=== PATIENT | male | born 1950 | race Caucasian/White ===

== ENCOUNTER 2018-08-10 10:44 | Observation (INO) | payer MEDICARE, OTHER ==
--- OUTSIDE RECORDS SUMMARY | 2018-08-10 10:52 | XMS REPORT | Continuity of Care Document ---
:1950 External Reference #:[id number] Author Name Nora Price Care Team Providers Name Role Phone Jose Donohue MD Care Team Information [employer] Unavailable Jose Donohue MD Primary Care Physician Unavailable Payers Type Date Identification Numbers Payment Provider Subscriber Effective: 2018 Policy Number: [id number] [employer] [place] Curly Cruz PayID: [id number] [address] [place] [address] Policy Number: [id number] [facility] Curly Cruz PayID: [id number] [address] [address] [address] Expires: 2018 Policy Number: [id number] [employer] [place] Curly Cruz PayID: [id number] [address] [place] [address] Advance Directives Description No Information Available Problems Date Description Provider Status Onset: 12/26/2017 Uncomplicated moderate persistent Aki Asher MD Active asthma Onset: 12/26/2017 Allergic rhinitis Aki Asher MD Active Onset: 12/26/2017 Allergic rhinitis due to pollen Aki Asher MD Active Family History Date Family Member(s) Problem(s) Comments General Unknown Social History Type Date Description Comments Sex Unknown Smoke-Free Home is smoke-free Pets None Tobacco Use Start: Unknown End: Unknown Patient is a former smoker Smoking Status Reviewed: 07/24/18 Patient is a former smoker Allergies, Adverse Reactions, Alerts Description No Known Drug Allergies Medications Medication Date Status Form Strength Qnty SIG Indications Ordering Provider Symbicort 01/23/ Active Aerosol 160-4.5mcg 1unit 2 puff J30.89 Christopher 2018 /Act s twice a Kiersten Asher MD day Mometasone 12/26/ Active Suspension 50mcg/Act 17gm [facility]ill [facility]1 [facility] 2017 2 sprays Kiersten Asher MD into each nostril once daily Xyzal Allergy 12/26/ Active Tablets 5mg 30tab take 1 J30.1 [place] 24HR 2018 s tablet Kiersten Asher MD (5 mg) by oral route once daily as needed Proair HFA 12/26/ Active Aerosol 108(90Base 8.500 2 puffs J30.1 [place] 2017 ) mcg/Act gm every 4 Kiersten Asher MD as needed Tradjenta / Active Tablets 5mg Unknown 0000 Fenofibrate / Active Tablets 160mg 1/2 by Unknown 0000 mouth every day Atorvastatin / Active Tablets 40mg 1 by Unknown Calcium 0000 mouth every day Tamsulosin HCL / Active Capsules 0.4mg take 1 Unknown 0000 cap by mouth daily. Metformin HCL / Active Tablets 500mg take 1 Unknown 0000 tablet by mouth twice a day (takes w/ janumet 50/500mg ) Lisinopril / Active Tablets 10mg Unknown 0000 Terbinafine / Active Tablets 250mg 1 by Unknown HCL 0000 mouth every day Breo Ellipta 12/26/ Hx Aerosol 200-25mcg/ 1unit inhale [place] 2017 - Inh s one puff Kiersten Asher MD 01/23/ once a 2018 day Doxycycline / Hx Capsules 100mg one Unknown Hyclate 0000 - tablet 01/09/ by mouth 2017 once a day Immunizations Description No Information Available Vital Signs Date Vital Result Comment 07/24/2018 3:14pm BP Systolic 132 mmHg BP Diastolic 72 mmHg Height 72 inches 6'0" Weight 190.00 lb BMI (Body Mass Index) 25.8 kg/m2 Heart Rate 82 /min Respiratory Rate 16 /min Body Temperature 98.0 F O2 % BldC Oximetry 98 % 01/23/2018 8:54am BP Systolic 118 mmHg BP Diastolic 68 mmHg Height 72 inches 6'0" Weight 191.00 lb BMI (Body Mass Index) 25.9 kg/m2 Heart Rate 66 /min Respiratory Rate 16 /min Body Temperature 96.6 F O2 % BldC Oximetry 95 % 12/26/2017 10:32am BP Systolic 120 mmHg 94 BP Diastolic 88 mmHg 94 Height 72 inches 6'0" Weight 191.00 lb BMI (Body Mass Index) 25.9 kg/m2 Heart Rate 94 /min Respiratory Rate 18 /min Body Temperature 97.2 F O2 % BldC Oximetry 98 % Results Description No Information Available Procedures Date Code Description Status 01/23/2018 56688 Nitric Oxide Gas Determination Completed 01/23/2018 27548 Nitric Oxide Gas Determination Completed 01/23/2018 68402 Bronchodilation Responsiveness Spirometry Pre/Post Completed Bronchodil Adm 01/23/2018 87502 Bronchodilation Responsiveness Spirometry Pre/Post Completed Bronchodil Adm 12/26/2017 94488 Nitric Oxide Gas Determination Completed 12/26/2017 76473 Allergy Tests Percutaneous W/ Allergenic Extracts Completed 12/26/2017 35996 Bronchodilation Responsiveness Spirometry Pre/Post Completed Bronchodil Adm Encounters Type Date Location Provider Dx Diagnosis Office Visit 01/23/2018 8:30a GUERO Magallanes J30.1 Allergic rhinitis due to pollen J30.89 Other allergic rhinitis J45.40 Moderate persistent asthma, uncomplicated Office Visit 12/26/2017 10:30a Jenae Asher J30.1 Allergic rhinitis MD due to pollen J30.89 Other allergic rhinitis J45.40 Moderate persistent asthma, uncomplicated Plan of Treatment 01/23/2018 - GUERO VasquezJ30.1 Allergic rhinitis due to wcepbrS57.89 Other allergic rhinitisNew Medication:Symbicort 160-4.5 mcg/Act - 2 puff twice a dayJ45.40 Moderate persistent asthma, uncomplicatedComments:Patient's PFT shows FEV1 at 70%, post FEV1 at 71%. FEF 2575 at 51%, post FEF 2575 at 57%. Patient' s exhaled nitric oxide is elevated at 42 ppb. On exhaled nitric oxide was 79 ppb. Patient to continue Breo for prophylaxis of his lungs and pro-air for breakthrough chest symptoms. Insurancedid not cover the cost of Breo so we have supplied patient with Breo samples. We will try to prescribe a medication (Symbicort) that his insurance will cover. Patient to use Flonase for prophylaxis of his nose and Xyzal for breakthrough nasal symptoms.Follow up:6 months, PFT and NIOX prior
--- OUTSIDE RECORDS SUMMARY | 2018-08-10 10:52 | XMS REPORT | Continuity of Care Document ---
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 Jose Donohue MD Primary Care Physician Unavailable Payers Type Date Identification Numbers Payment Provider Subscriber Effective: 2018 Policy Number: [id number] [employer] [place] Cur[place] Cruz PayID: [id number] [address] [place] [address] Policy Number: [id number] [facility] Curly Cruz PayID: [id number] [address] [address] [place] [address] Expires: 2018 Policy Number: [id number] [employer] [place] Curly Cruz PayID: [id number] [address] [place] [address] Advance Directives Description No Information Available Problems Date Description Provider Status Onset: 07/24/2018 Chronic obstructive lung Vangie Martins, ARTURO-C Active disease Onset: 12/26/2017 Uncomplicated moderate Aki Asher MD Active persistent asthma Onset: 12/26/2017 Allergic rhinitis Aki Asher [...] Form Strength Qnty SIG Indications Ordering Provider Breo Ellipta 07/24/ Active Aerosol 200-25mcg/ 28uni Inhale J45.40 [place] 2019 Inh ts one puff Kiersten Asher MD once a day. Rinse mouth after use. Proair HFA 12/26/ Active Aerosol 108(90Base 8.500 2 puffs J30.1 [place] 2017 ) mcg/Act gm every 4 Kiersten [...] by Unknown HCL 0000 mouth every day Symbicort 01/23/ Hx Aerosol 160-4.5mcg 1unit 2 puff J30.89 [facility] - /Act s twice a Kiersten Asher MD day 2019 Mometasone 12/26/ Hx Suspension 50mcg/Act 17gm instill J30.1 Christopher Furoate 2018 - 2 sprays Kiersten Asher MD into 2019 each nostril once daily Xyzal Allergy 12/26/ Hx Tablets 5mg 30tab take 1 [facility].1 [facility] - s tablet Kiersten Asher MD 07/24/ (5 mg) 2019 by oral route once daily as needed Breo Ellipta 12/26/ Hx Aerosol 200-25mcg/ 1unit inhale [place] 2018 - Inh s one puff Kiersten Asher MD 01/23/ once a 2018 day Doxycycline / Hx Capsules 100mg one Unknown Hyclate 0000 - tablet 01/09/ by mouth 2018 once a day Immunizations Description No Information [...] Information Available Procedures Date Code Description Status 07/24/2018 04370 Nitric Oxide Gas Determination Completed 07/24/2018 04700 Bronchodilation Responsiveness Spirometry Pre/Post Completed Bronchodil Adm 01/23/2018 13888 Nitric Oxide Gas Determination Completed 01/23/2018 61812 Nitric Oxide Gas Determination Completed 01/23/2018 91376 Bronchodilation Responsiveness Spirometry Pre/Post Completed Bronchodil Adm 01/23/2018 41602 Bronchodilation Responsiveness Spirometry Pre/Post Completed Bronchodil Adm 12/26/2017 80799 Nitric Oxide Gas Determination Completed 12/26/2017 12929 Allergy Tests Percutaneous W/ Allergenic Extracts Completed 12/26/2017 58625 Bronchodilation Responsiveness Spirometry Pre/Post Completed Bronchodil Adm Encounters Type Date Location Provider Dx Diagnosis Office Visit 07/24/2018 Jenae Salas J45.40 Moderate persistent 3:00p Fenstermacher, asthma, uncomplicated RPA-C J44.9 Chronic obstructive pulmonary disease, unspecified J30.1 Allergic rhinitis due to pollen Office Visit 01/23/2018 8:30a GUERO Magallanes J30.1 Allergic rhinitis due to pollen J30.89 Other allergic rhinitis J45.40 Moderate persistent asthma, uncomplicated Office Visit 12/26/2017 10:30a Jenae Asher J30.1 Allergic rhinitis MD due to pollen J30.89 Other allergic rhinitis J45.40 Moderate persistent asthma, uncomplicated Plan of Treatment Future Appointment(s):10/23/2018 10:00 am - HASEEB Gregory at [place]
--- NOTE | 2018-08-10 11:05 | ED ---
Syncope/Near Syncope - HPI Summary HPI Summary: Patient is a 68 y/o M presenting to ED via ambulance with complaints of syncopal episode today. He was at [employer] today when he states he began to feel "woozy" and slightly dizzy. Patient denies diaphoresis and tremors at the time. Afterwards, patient went down, was caught by [employer]'s car sales representative. No injury is reported. , who is in the room, reports that patient was "totally out" for a few minutes. notes that he was slightly confused upon awaking, but this resolved quickly. She also reports that patient had a similar episode three weeks ago while patient was at daughter's swim meet, nothing that patient was similarly "totally out" for a few minutes. At the time, the patient thought the syncopal episode was due to the heat at the swim meet. PMHx of HTN and diabetes. EMS reports that patient appeared somewhat pale. BP was reported to be 102 systolic, BG of 165. EMS 12 lead EKG was reported to be unremarkable. Patient is on metformin and trijenta. Chest pain, SOB, abdominal pain, N/V/D, constipation are all denied. No recent travel, no recent long rides in cars. Patient notes that he had a sweet roll for breakfast, which is less than his typical breakfast. On triage, pain is denied, nothing is noted to aggravate/ alleviate Sx. Home medications and allergies are reviewed. - History Of Current Complaint Chief Complaint: EDSyncope Time Seen by Provider: 08/10/18 10:53 Hx Obtained From: Patient, Family/Rn Gastroenterology - , EMS Onset/Duration: Lasting Minutes - syncopal episode, Resolved Timing: Frequency Of Episodes - this is second episode Context: Witnessed, Loss Of Consciousness Activity At Onset: Other - at [employer] standing and talking to car sales representative Associated Head Trauma: No Aggravating Factor(s): Nothing Alleviating Factor(s): Nothing Associated Signs And Symptoms: Dizzy, Other - no tremors, diaphoresis, Chest pain, SOB, abdominal pain, N/V/D, injury, recent long travel or car rides - Allergies/Home Medications Allergies/Adverse Reactions: Allergies Allergy/AdvReac Type Severity Reaction Status Date / Time iodixanol [From Visipaque] Allergy Hives Verified 08/10/18 11:09 PMH/Surg Hx/FS Hx/Imm Hx Endocrine/Hematology History: Reports: Hx Diabetes - type 2 Cardiovascular History: Reports: Hx Hypertension Denies: Hx Pacemaker/ICD History: Reports: Hx Renal Disease - abnormal gfr Denies: Hx Dialysis Sensory History: Denies: Hx Hearing Aid Psychiatric History: Denies: Hx Panic Disorder - Surgical History Surgery Procedure, Year, and Place: hernia repair,ORAL SURGERY Infectious Disease History: No Infectious Disease History: Denies: Traveled Outside the [place] in Last 30 Days - Family History Known Family History: Positive: Diabetes - Social History Alcohol Use: None Substance Use Type: Reports: None Smoking Status (MU): Never Smoked Tobacco Review of Systems Constitutional: Other - NEGATIVE - TREMORS, INJURY Negative: Skin Diaphoresis Negative: Chest Pain Negative: Shortness Of Breath Gastrointestinal: Other - NEGATIVE - CONSTIPATION Negative: Abdominal Pain, Vomiting, Diarrhea, Nausea Neurological: Other - POSITIVE - DIZZINESS, "WOOZY" BEFORE EPISODE Positive: Syncope - WITH LOC All Other Systems Reviewed And Are Negative: Yes Physical Exam - Summary Physical Exam Summary: VITAL SIGNS: Reviewed. GENERAL: Patient is a well-developed and nourished male who is lying comfortable in the stretcher. Patient is not in any acute respiratory distress. HEAD AND FACE: No signs of trauma. No ecchymosis, hematomas or skull depressions. No sinus tenderness. EYES: PERRLA, EOMI x 2, No injected conjunctiva, no nystagmus. No photophobia. EARS: Hearing grossly intact. Ear canals and tympanic membranes are within normal limits. MOUTH: Oropharynx within normal limits. NECK: Supple, trachea is midline, no adenopathy, no JVD, no carotid bruit, no c- spine tenderness, neck with full ROM. No meningeal signs, no Kernig's or brudzinskis signs. CHEST: Symmetric, no tenderness at palpation LUNGS: Clear to auscultation bilaterally. No wheezing or crackles. CVS: Regular rate and rhythm, S1 and S2 present, no murmurs or gallops appreciated. ABDOMEN: Soft, non-tender. No signs of distention. No rebound no guarding, and no masses palpated. Bowel sounds are normal. EXTREMITIES: FROM in all major joints, no edema, no cyanosis or clubbing. NEURO: Alert and oriented x 3. No acute neurological deficits. Speech is normal and follows commands. SKIN: Dry and warm GCS: 15 Triage Information Reviewed: Yes Vital Signs On Initial Exam: Initial Vitals Temp Pulse Resp BP Pulse Ox 98.5 F 74 23 108/71 95 08/10/18 10:52 08/10/18 10:52 08/10/18 10:52 08/10/18 10:52 08/10/18 10:52 Vital Signs Reviewed: Yes Diagnostics - Vital Signs Vital Signs Temp Pulse Resp BP Pulse Ox 08/10/18 10:52 98.5 F 74 23 108/71 95 - Laboratory Result Diagrams: 08/11/18 04:57 08/11/18 04:57 Lab Statement: Any lab studies that have been ordered have been reviewed, and results considered in the medical decision making process. - Radiology CXR Radiology Interpretation Completed By: Radiologist Summary of Radiographic Findings: IMPRESSION: FINDINGS SUGGESTIVE OF COPD, NO EVIDENCE FOR ACUTE FINDING. THIS REPORT WAS REVIEWED BY ED PHYSICIAN. - CT brain ct CT Interpretation Completed By: Radiologist Summary of CT Findings: IMPRESSION: DISPROPORTIONATE VENTRICULOMEGALY INVOLVING THE THIRD AND LATERAL VENTRICLES. 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 EXAM. THIS REPORT WAS REVIEWED BY ED PHYSICIAN. - EKG 1111 Cardiac Rate: NL - rate of 85 BPM EKG Rhythm: Sinus Rhythm Summary of EKG Findings: EKG showed sinus rhythm with rate of 85 BPM, no ST elevations. Course/Dx Assessment/Plan: Patient is a 68 y/o M presenting to ED via ambulance with complaints of syncopal episode today. He was at [employer] today when he states he began to feel "woozy" and slightly dizzy. Patient denies diaphoresis and tremors at the time. Afterwards, patient went down, was caught by [employer]'s car sales representative. No injury is reported. , who is in the room, reports that patient was "totally out" for a few minutes. notes that he was slightly confused upon awaking, but this resolved quickly. She also reports that patient had a similar episode three weeks ago while patient was at daughter's swim meet , nothing that patient was similarly "totally out" for a few minutes. At the time, the patient thought the syncopal episode was due to the heat at the swim meet. PMHx of HTN and diabetes. EMS reports that patient appeared somewhat pale. BP was reported to be 102 systolic, BG of 165. EMS 12 lead EKG was reported to be unremarkable. Patient is on metformin and trijenta. Chest pain, SOB, abdominal pain, N/V/D, constipation are all denied. No recent travel, no recent long rides in cars. Patient notes that he had a sweet roll for breakfast , which is less than his typical breakfast. All blood work without any significant abnormality except her slight anemia, d-dimer is more than 1050, sodium 134, BUN 25 creatinine 1.75, glucose 166, lactic acid is 2.7, magnesium was 1.8. Chest x-ray impression: Findings suggestive COPD. No evidence for acute finding. Head CT impression: Disproportionate ventriculomegaly involving the third and lateral ventricles suggestive of obstructive hydrocephalus. This appears chronic and unchanged from the prior exam. The patient is allergic to dye therefore unable to do a CTA. Therefore I ordered and V/Q scan. Therefore , I discussed the case with Dr. De Santiago who agreed to call the tech to perform the test. However it is reported that the wait time for the VQ scan is at least 2 hours. Therefore this time I discussed my physical exam and findings with Dr. Acevedo who accepted the patient for admission. He wants to examine the patient first before we start with Lovenox. Patient is hemodynamically stable alert and oriented 3. Dr. Acevedo accepted the patient for admission. Patient will be admitted for syncope. Dr. Acevedo will follow-up the patient was given for further assessment and treatment. At this point the patient is alert and oriented 3. - Diagnoses Differential Diagnosis/HQI/PQRI: Positive: Cerebral Vascular Accident, Transient Ischemic Attack, Vasovagal Episode Provider Diagnoses: Syncope - Physician Notifications Discussed Care of Patient With: Mauri De Santiago Time Discussed With Above Provider: 12:08 Instructed by Provider To: Other - As patient is allergic to IV contrast, patient's case was discussed with Dr. De Santiago. 1329 - Patient's case was discussed with Dr. Acevedo, Dr. Acevedo accepts for admission. Discharge - Sign-Out/Discharge Documenting (check all that apply): Patient Departure All imaging exams completed and their final reports reviewed: Yes Patient Received Moderate/Deep Sedation with Procedure: No - NO PROCEDURES DONE - Discharge Plan Condition: Stable Disposition: ADMITTED TO [facility] - Billing Disposition and Condition Condition: STABLE Disposition: Admitted to [facility] - Attestation Statements Document Initiated by Scribe: Yes Documenting Scribe: ROBBIE GIANG Provider For Whom Scribe is Documenting (Include Credential): KYLE MONREAL MD Scribe Attestation: I, ROBBIE GIANG , scribed for KYLE MONREAL MD on 08/11/18 at 1312. Scribe Documentation Reviewed: Yes Provider Attestation: The documentation as recorded by the [email or web address] accurately reflects the service I personally performed and the decisions made by me, KYLE MONREAL MD Status of Scribe Document: Viewed
[2018-08-10 11:35] LABS: ABS Basophils 0.1 10^3/ul (0-0.2); ABS Eosinophils 0.3 10^3/ul (0-0.6); ABS Lymphocytes 0.7 10^3/ul (1.0-4.8); ABS Monocytes 0.7 10^3/ul (0-0.8); ABS Neutrophils 5.7 10^3/ul (1.5-7.7); ABS Nucleated RBC 0 10^3/ul; Eosinophil % 3.8 %; Hematocrit 37 % (42-52); Hemoglobin 11.8 g/dl (14.0-18.0); Lymphocyte % 9.1 %; Mean Corpuscular HGB Conc 32 g/dl (31-36); Mean Corpuscular Hemoglobin 28 pg (27-31); Mean Corpuscular Volume 87 fL (80-94); Nucleated Red Blood Cells % 0.1; Platelet Count 240 10^3/ul (150-450); Red Blood Count 4.21 10^6/ul (4.00-5.40); Red Cell Distribution Width 15 % (10.5-15); White Blood Count 7.5 10^3/ul (3.5-10.8)
[2018-08-10 11:47] LABS: Albumin 3.3 g/dL (3.2-5.2); Albumin/Globulin Ratio 0.8 (1-3); BUN/Creatinine Ratio 14.3 (8-20); Calcium 9.3 mg/dL (8.6-10.3); EGFR African American 47.1 (>60); Globulin 4.4 g/dL (2-4); Magnesium 1.8 mg/dL (1.9-2.7); Potassium 3.9 mmol/L (3.5-5.0); Total Bilirubin 1.1 mg/dL (0.2-1.0); Total Protein 7.7 g/dL (6.4-8.9)
[2018-08-10] MEDS ORDERED: Iodixanol* (CONTRAST) 320 MG/ML 100 ML SDV IV ONE (11:53)
[2018-08-10 12:01] LABS: TSH (Thyroid Stimulating Horm) 0.75 mcIU/mL (0.34-5.60)
[2018-08-10] MEDS ORDERED: Magnesium Oxide TAB* 400 MG PO ONE (12:59)
[2018-08-10] MEDS ORDERED: Magnesium Sulfate 1 GM IV* 1 GM/100 ML BAG IV ONE (13:49)
[2018-08-10] MEDS ORDERED: NS 0.45% 1000 ML BAG* 1,000 ML IV SCH (14:00)
[2018-08-10 14:12] LABS: Urine Appearance Cloudy; Urine Bacteria Absent (Absent); Urine Bilirubin Negative (Negative); Urine Blood Negative (Negative); Urine Color Yellow; Urine Glucose Negative (Negative); Urine Ketones Negative (Negative); Urine Nitrite Negative (Negative); Urine Protein 1+(30 mg/dL) (Negative); Urine Red Blood Cell 2+(6-10/hpf) (Absent); Urine Urobilinogen Negative (Negative); Urine White Blood Cell 1+(6-10/hpf) (Absent)
[2018-08-10] MEDS ORDERED: Dextrose 50% Syringe 50 ML* 25 GM/50 ML SYRINGE IV PUSH PRN (14:48)
--- NOTE | 2018-08-10 17:38 | HP ---
HISTORY AND PHYSICAL: DATE OF ADMISSION: 08/10/18 PROVIDER: Deborah Justin NP. ATTENDING PHYSICIAN: Ramiro Acevedo MD * (report dictated by Deborah Justin NP). PRIMARY CARE PROVIDER: [facility] Internal Medicine, GUERO Bianchi. CHIEF COMPLAINT: Syncope. HISTORY OF PRESENT ILLNESS: Mr. Cruz is a 68-year-old male with a past medical history of hypertension, uub-acibxrc-cywgrakow type 2 diabetes, COPD, previous long- term history of tobacco abuse, hydrocephalus who reports today he was at [facility] when he had acute onset of lightheadedness, dizziness, and had a syncopal episode where he did lose consciousness and per his , who witnessed the event, reported he was out for several seconds to minutes, awaking slightly confused which only lasted a few seconds then he returned to his baseline. Patient reports approximately 3 weeks ago, he had a similar episode where he was at his granddaughter's swim meet and reports that it was "very, very hot and humid" and was sitting next to his son, felt a little lightheaded, and slumped over. He was evaluated at that time by the medical person on site. He was given some sugar to drink and he said he felt better and at that time was never evaluated at the hospital. He does report that at both these incidences, he had very little to eat in the morning and has had episodes of hypoglycemia before in the past. Today, he also reports that he has had very little fluid intake and did feel slightly dehydrated. Today, in [facility], he denies any position change and states this happened when he was upright. He denies any shortness of breath or chest pain. He is found to have an elevated d-dimer in the emergency department greater than 1050. He denies ever having a history of PE or DVT before in the past. Again, denies shortness of breath at rest or exertion. No chest pain. Denies history of seizures. He was recently diagnosed in fall 2017 with hydrocephalus in which he states at that time it was caught incidentally on a CT scan. His primary referred him to the neurosurgeon, but he reports he failed to follow up. His brain CT today reads "disproportionate ventriculomegaly involving the third and lateral ventricles suggestive of obstructive hydrocephalus. This appears chronic and unchanged from the prior exam." Patient denies any history of headaches; however, he does report he had a mild headache when he got to the hospital that has since resolved. Denies any vision changes. Denies weakness. Currently, in the emergency department, the patient reports that he is back to his baseline and feels well. Denies any recent illness and reports last time he had a cold was 2 years ago. He reports that he has fairly good health at his baseline. Denies shortness of breath or history of exertional shortness of breath. The patient denies any recent travel, flying, or long-distance car rides. Denies chest pain. No fever/chills/nausea/vomiting. His is at the bedside. Hospital Medicine will admit for workup of syncope. PAST MEDICAL HISTORY: 1. Srb-dhsrgos-hmqewwkhh type 2 diabetes. 2. Hypertension. 3. COPD. 4. Hydrocephalus diagnosed in fall 2017. 5. History of left lung nodule that was found to be benign. 6. Questionable liver lesion, primary care is following. 7. Hyperlipidemia. PAST SURGICAL HISTORY: Hernia repair CURRENT MEDICATIONS: 1. Vitamin D 1 tablet p.o. daily. 2. Vitamin C 1 tablet p.o. daily. 3. Flomax 0.4 mg p.o. daily. 4. Multivitamin 1 tablet p.o. daily. 5. Lisinopril 10 mg p.o. daily. 6. Linagliptin 5 mg p.o. daily. 7. Fenofibrate 160 mg p.o. daily. 8. Metformin 500 mg p.o. b.i.d. 9. Atorvastatin 40 mg p.o. daily. ALLERGIES: IV CONTRAST. FAMILY HISTORY: His mother had rheumatoid arthritis and diabetes. SOCIAL HISTORY: Has 30-year history of smoking tobacco, quitting approximately 8 years ago. Reports 2 to 3 beers a week. He is retired, lives at home with his , Ninfa Cruz, who is listed as healthcare proxy. He has 1 son who lives in [place]. REVIEW OF SYSTEMS: A 14-point review of systems was performed. All the pertinent positives and negatives are mentioned in the history of present illness. Otherwise, negative. PHYSICAL EXAMINATION GENERAL APPEARANCE: Well-developed 68-year-old male, sitting up on the emergency department stretcher, in no acute distress, alert and oriented x3. VITAL SIGNS: Temperature 98.5, heart rate 95, respirations 20, O2 saturation is 94% to 97% on room air, blood pressure 115/59. HEENT: Head is normocephalic, atraumatic. Pupils are equal and reactive to light. Oropharynx is clear. Dry mucous membranes. NECK: Supple. LUNGS: Clear to auscultation bilaterally. Good aeration throughout. CARDIAC: S1 and S2. Regular rate and rhythm. No murmur or gallop appreciated. ABDOMEN: Soft, nontender, and nondistended. Normal bowel sounds throughout. MUSCULOSKELETAL: Strength is 5/5 throughout. No clubbing or cyanosis is noted. Full range of motion in all extremities. NEUROLOGIC: Cranial nerves II through XII are grossly intact. Moves all extremities equally. Sensation in the lower extremities is intact to light touch. No focal deficits noted. SKIN: Warm, pink. No rashes, lesions, or wounds noted. PSYCH: Appropriate. DIAGNOSTIC STUDIES/LAB DATA: Sodium 134, potassium 3.9, chloride 104, carbon dioxide 22, anion gap 8, BUN 25, creatinine 1.75, glucose 166, lactic acid 2.7, calcium 9.3, magnesium 1.8, total bilirubin 1.10. AST 38, ALT 44, alkaline phosphatase 103, total creatine kinase 35. Troponin 0.00. BNP 37. Total protein 7.7, albumin 3.3. TSH 0.75. D-dimer greater than 1050. WBC is 7.5, RBC 4.21, HGB 11.8, HCT 37, MCV 87, MCH 28, MCHC 32, RDW 15, and platelet count 240. Urinalysis 1+ positive protein, wbc is 1+, rbc 2+, hyaline casts present. Brain CT, please see above for read. Chest x-ray, impression: "Findings suggestive of COPD. No evidence for acute finding." EKG sinus rhythm with a rate of 85 with atrial premature complexes noted. No acute ST changes. ASSESSMENT AND PLAN: Mr. Cruz is a 68-year-old male with past medical history of hypertension, xax-csmhfoc-otihbjajm type 2 diabetes, chronic obstructive pulmonary disease, hydrocephalus who presented to the emergency department today after a syncopal episode in [facility], where he did lose complete consciousness and reports a similar episode 3 weeks ago. Hospital Medicine will admit him for syncope. 1. Syncope, unclear etiology at this time. The patient will be admitted to [facility] and we will continue to monitor on tele. The patient has no EKG changes and his initial charting is flat. Will continue to trend troponins. Obtain echocardiogram. The patient cannot undergo a CTA of the chest due to his IV CONTRAST ALLERGY and will undergo a V/Q scan which is pending at this time. He is oxygenating well on room air with no signs of respiratory distress. It is possible that he had a hypoglycemic and/or vasovagal episode. No obvious signs of infection. Blood cultures have been sent. Hydrocephalus unchanged should follow up with neurosurgery as an outpatient.Will touch base with neurosurgery. 2. Acute renal failure. Unclear what the patients baseline is, I suspect this is elevated above baseline and is secondary to dehydration. He also has mildly low sodium and elevated lactic acid. He reports poor p.o. intake in the last 24 hours of fluids. Will give him normal saline at 125 mL an hour overnight and repeat in the morning. I do note that he has 1+ protein and some blood noted in his urine. With history of type 2 diabetes, this should be followed closely as an outpatient. 3. Elevated lactic acid at 2.7. Unclear if this is secondary to dehydration and could be possibly secondary to his metformin use. We will repeat lactic acid after he has had some IV fluids. There are no obvious signs of infection. 4. Type 2 diabetes. We will hold home oral medications. Fingerstick blood glucose a.c. and h.s. with lispro sliding scale. 5. Electrolyte abnormality. Noted to have magnesium 1.8. He has been given replacement. Repeat in the morning. Slightly low sodium 134, suspect secondary to dehydration. Lab will repeat in the morning after IV fluids. 6. Normocytic anemia. It appears this is not new; however, this has trended down since 2017. We will check stool for occult blood. The patient denies any blood noted in the stool. 7. Hypertension. Hold the patient's home lisinopril due to his possible acute kidney injury. Reevaluate in the morning. His blood pressures are stable at this time, systolically in the low 100s. 8. Hyperlipidemia. Continue Lipitor. 9. DVT prophylaxis. Heparin subcu. 10. Code status. Full code. 11. Hospital status. Observation. TIME SPENT: Approximately 60 minutes were spent on this admission. DEBORAH JUSTIN, ARTIFICIAL LEATHER CALENDER OPERATOR [id number]/[facility] #: [id number] NAVID
[2018-08-10] MEDS: Insulin LISPRO* 1 UNITS UNIT SUBCUT SCH ×2 (20:28→21:49)
[2018-08-10] MEDS: Heparin VIAL(*) 5000 UNITS/ML VIAL (FIVE THOUSAND) SUBCUT SCH (21:48)
[2018-08-10] MEDS: NS 0.9% 1000 ML** 1,000 ML IV SCH (22:29)
[2018-08-11 05:48] LABS: ABS Basophils 0.1 10^3/ul (0-0.2); ABS Eosinophils 0.5 10^3/ul (0-0.6); ABS Monocytes 0.9 10^3/ul (0-0.8); ABS Neutrophils 4.2 10^3/ul (1.5-7.7); ABS Nucleated RBC 0 10^3/ul; Eosinophil % 7.2 %; Hematocrit 33 % (42-52); Hemoglobin 10.9 g/dl (14.0-18.0); Lymphocyte % 15.6 %; Mean Corpuscular HGB Conc 33 g/dl (31-36); Mean Corpuscular Hemoglobin 28 pg (27-31); Mean Corpuscular Volume 87 fL (80-94); Mean Platelet Volume 8.1 fL (7.4-10.4); Nucleated Red Blood Cells % 0; Platelet Count 232 10^3/ul (150-450); Red Blood Count 3.86 10^6/ul (4.00-5.40); Red Cell Distribution Width 15 % (10.5-15); White Blood Count 6.6 10^3/ul (3.5-10.8)
[2018-08-11] MEDS: Heparin VIAL(*) 5000 UNITS/ML VIAL (FIVE THOUSAND) SUBCUT SCH ×3 (05:56→21:31)
[2018-08-11 06:06] LABS: BUN/Creatinine Ratio 16.6 (8-20); Calcium 8.7 mg/dL (8.6-10.3); EGFR African American 58.6 (>60); EGFR Non-African American 48.4 (>60); Magnesium 2.2 mg/dL (1.9-2.7); Potassium 3.8 mmol/L (3.5-5.0)
[2018-08-11] MEDS: NS 0.9% 1000 ML** 1,000 ML IV SCH ×2 (07:33→15:19)
[2018-08-11] MEDS: Atorvastatin* 40 MG TAB PO SCH (07:35)
[2018-08-11] MEDS: Tamsulosin CAP* 0.4 MG PO SCH (07:35)
[2018-08-11] MEDS: Insulin LISPRO* 1 UNITS UNIT SUBCUT SCH ×4 (07:40→21:31)
[2018-08-11] MEDS ORDERED: Lisinopril TAB* 10 MG PO SCH (09:00)
--- NOTE | 2018-08-11 14:58 | PN ---
Subjective Date of Service: 08/11/18 Interval History: Pt seen and examined. Meds and labs reviewed. Pt mentions he was with his shopping yesterday and was standing for quite a long time when he began having some dizziness and lightheadedness. He mentioned something similar happened a few weeks ago in a swim meet of his grand-daughter but at that time he was sitting and noticed that the venue was warm and humid. 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 The rest of the 14 point ROS are unremarkable. PHYSICAL EXAM: GEN APPEARANCE: Awake, not in acute distress HEENT: NC/AT, PERRLA, moist oral mucosa, (-) throat erythema NECK: Soft, supple, (-) cervical LAD, (-)JVD HEART: S1S2 WNL, RRR, No MRG CHEST: CTA, BL, GAE, No W/R/R ABD: Soft, ND/NT, NABS 4x Q EXT: No C/C/E SKIN: Warm to touch, good skin turgor PSYCH: No active psychosis, hallucinations, depression, SI/HI Objective Active Medications: Atorvastatin Calcium (Lipitor*) 40 mg PO DAILY [facility] Last Admin: 08/11/18 07:35 Dose: 40 mg Dextrose (D50w Syringe 50 Ml*) 12.5 gm IV PUSH .FOR FS < 60 - SS PRN PRN Reason: FS < 60 Heparin Sodium (Porcine) (Heparin Vial(*)) 5,000 units SUBCUT Q8HR [facility] Last Admin: 08/11/18 14:26 Dose: 5,000 units Sodium Chloride (Ns 0.9% 1000 Ml) 1,000 mls @ 100 mls/hr IV PER RATE [facility] Stop: 08/14/18 00:40 Insulin Human Lispro (Humalog*) 0 units SUBCUT ACHS [facility]; Protocol Last Admin: 08/11/18 12:38 Dose: 1 unit Tamsulosin HCl (Flomax Cap*) 0.4 mg PO DAILY [facility] Last Admin: 08/11/18 07:35 Dose: 0.4 mg Vital Signs - 8 hr 08/11/18 08/11/18 08/11/18 07:16 08:00 11:12 Temperature 98.8 F 98.8 F Pulse Rate 67 85 Respiratory 16 16 16 Rate Blood Pressure 123/55 124/63 (mmHg) O2 Sat by Pulse 96 96 Oximetry 08/11/18 08/11/18 08/11/18 14:40 14:42 14:53 Temperature 98.1 F Pulse Rate 75 81 75 Respiratory 16 Rate Blood Pressure 115/79 130/62 125/60 (mmHg) O2 Sat by Pulse 97 Oximetry Oxygen Devices in Use Now: None Result Diagrams: 08/11/18 04:57 08/11/18 04:57 Microbiology and Other Data: Microbiology 08/10/18 13:43 Aerobic Blood Culture - Preliminary Blood Venous No Growth Day 1 Anaerobic Blood Culture - Preliminary No Growth Day 1 08/10/18 13:36 Aerobic Blood Culture - Preliminary Blood Venous No Growth Day 1 Anaerobic Blood Culture - Preliminary No Growth Day 1 Assess/Plan/Problems-Billing Assessment: - Patient Problems (1) Syncope Current Visit: Yes Status: Acute Code(s): R55 - SYNCOPE AND COLLAPSE SNOMED Code(s): 814493711 Comment: -Likely due to acute DHN despite reporting no change in PO intake -BUN/Crea increased on presentation and has improved on hydration -Pt was found to increase HR from supine to standing position by 26 points and again consistent w/orthostaisis due to DHN -Reviewed tele and saw frequent PACs, w/c could also be due to DHN; spoke w/ Dr. Mayorga who mentioned pt cannot be diagnosed w/POTS until pt is adequately hydrated and likely appears to be due to DHN as far as his clinical presentation is concerned; if PACs persist o/n despite adequate hydration, will touch base w/cards in AM---appreciate Cards input -For 2D echo and carotid dopplers -V/Q scan R/O PE -Brain CT on admx shows NAD; w/ known chronic hydrocephalus w/o any acute change -ACS R/Ot w/Troponins (-)x3 -Hyaline casts present in U/A consistent w/above impression (2) Acute renal insufficiency Current Visit: Yes Status: Acute Code(s): N28.9 - DISORDER OF KIDNEY AND URETER, UNSPECIFIED SNOMED Code(s): 340862425 Comment: -Likely due to DHN -Will decrease rate and continue IVFs at 100cc/hr -For repeat orthostatic VS -Will observe if increased HR per position change as well as frequent PACs persists w/hydration -Possible cause of frequent PACs (3) Elevated lactic acid level Current Visit: Yes Status: Acute Code(s): R79.89 - OTHER SPECIFIED ABNORMAL FINDINGS OF BLOOD CHEMISTRY SNOMED Code(s): 7716200 Comment: -Resolved w/hydration -Likely due to DHN concomitant w/Metformin -Advised adequate PO intake -Continue to hold Metformin (4) Diabetes 1.5, managed as type 2 Current Visit: Yes Status: Acute Code(s): E13.9 - OTHER SPECIFIED DIABETES MELLITUS WITHOUT COMPLICATIONS SNOMED Code(s): 958257414 Comment: -Continue ISS -Continue to monitor FS AC/HS (5) Anemia Current Visit: Yes Status: Acute Code(s): D64.9 - ANEMIA, UNSPECIFIED SNOMED Code(s): 361326536 Comment: -Agree w/FOBT check; will order -Check Iron studies, B12, and folate studies (6) Hyperlipidemia Current Visit: Yes Status: Acute Code(s): E78.5 - HYPERLIPIDEMIA, UNSPECIFIED SNOMED Code(s): 71883109 Comment: -Continue atorvastatin (7) Sterile pyuria Current Visit: Yes Status: Acute Code(s): N39.0 - URINARY TRACT INFECTION, SITE NOT SPECIFIED SNOMED Code(s): 573016074 Comment: -Likely due to DHN as described (8) DVT prophylaxis Current Visit: Yes Status: Acute Code(s): AFM5161 - SNOMED Code(s): 656295025 Comment: -Continue Heparin SQq8H Status and Disposition: -As above -Awaiting for 2D echo, carotid dopplers, and PT eval -Possible D/C in AM
[2018-08-12] MEDS: Heparin VIAL(*) 5000 UNITS/ML VIAL (FIVE THOUSAND) SUBCUT SCH ×2 (05:52→12:56)
[2018-08-12] MEDS: NS 0.9% 1000 ML** 1,000 ML IV SCH (05:53)
[2018-08-12 05:59] LABS: % Iron Saturation 8 % (15-55); Iron 20 ug/dL (50-212); Total Iron Binding Capacity 245 mcg/dL (250-450); Transferrin 175 mg/dL (203-362)
[2018-08-12 06:21] LABS: Ferritin 193.7 ng/mL (24-336)
[2018-08-12] MEDS: Tamsulosin CAP* 0.4 MG PO SCH (08:08)
[2018-08-12] MEDS: Insulin LISPRO* 1 UNITS UNIT SUBCUT SCH ×2 (08:08→11:21)
[2018-08-12] MEDS: Atorvastatin* 40 MG TAB PO SCH (08:08)
--- NOTE | 2018-08-12 09:12 | ECHO ---
Patient: ROSANNE GAN [facility] Rec#: [id number] : 1950 Date: 08/12/2018 Age: 68y Height: 183 cm / 72.0 in Weight: 85.5 kg / 188.4 lbs Sex: M BSA: 2.08 Room#: 433 Admit Date#: 08/10/2018 Type: Inpatient Referring: Maia Yu Reading: Giuseppe Felder MD Building Carpenter: Pam Amador ANNALISE CC: Gloria Arvizu MD Transthoracic Echocardiogram Indication: Syncope BP: 124/60 HR: 67 Rhythm: NSR Findings History: Syncope, chronic hydrocephalus,HTN,DM,COPD,HLD. Technical Comments: The study is technically limited due to the patient's history of COPD. Completed at 0840. Left Ventricle: The left ventricular chamber size is normal. Global left ventricular wall motion and contractility are within normal limits. There is normal left ventricular systolic function. The estimated ejection fraction is 55-60%. There is no consistent Doppler evidence of clinically significant diastolic dysfunction. Left Atrium: The left atrial chamber size is normal. Right Ventricle: The right ventricular cavity size is normal. The right ventricular global systolic function is normal. Right Atrium: The right atrial cavity size is normal. Aortic Valve: The aortic valve is trileaflet. The aortic valve leaflets are mildly thickened. There is no evidence of aortic regurgitation. There is no evidence of aortic stenosis. Mitral Valve: The mitral valve leaflets are mildly thickened. There is no evidence of mitral regurgitation. There is no evidence of mitral stenosis. Tricuspid Valve: The tricuspid valve leaflets are normal. There is no evidence of tricuspid valve regurgitation. There is no tricuspid stenosis. Pulmonic Valve: The pulmonic valve structure is not well visualized. Pericardium: The pericardium appears normal. Aorta: There is no dilatation of the aortic arch. There is no dilation of the aortic root. Pulmonary Artery: The main pulmonary artery appears normal. Venous: The inferior vena cava appears normal in size. There is a greater than 50% respiratory change in the inferior vena cava dimension. Conclusions Global left ventricular wall motion and contractility are within normal limits. The estimated ejection fraction is 55-60%. The right ventricular global systolic function is normal. There is no evidence of aortic stenosis. There is no evidence of mitral regurgitation. There is no evidence of tricuspid valve regurgitation. The pericardium appears normal. Measurements Name Value Normal Range RVIDd (AP) 2D 2.8 cm (0.9 - 2.6) RVDdMajor (2D) 3 cm (2.2 - 4.4) RAd ISD 4CH 4.7 cm (3.4 - 4.9) RA (A4C)W 4 cm (2.9 - 4.6) IVSd (2D) 0.7 cm (0.6 - 1) LVPWd (2D) 1 cm (0.6 - 1) LVIDd (2D) 5.1 cm (3.6 - 5.4) LVIDs (2D) 3.2 cm - LV FS (2D) 37 % (25 - 45) Aortic Annulus 2.1 cm (1.4 - 2.6) Ao root diameter (2D) 3.4 cm (2.1 - 3.5) Ascending Ao 3.2 cm (2.1 - 3.4) Aortic arch 2.4 cm (1.8 - 3.4) LA dimension (AP) 2D 2.8 cm (2.3 - 3.8) LAd ISD 4CH 5.4 cm (2.9 - 5.3) LA ISD 4CH W 4.9 cm (2.5 - 4.5) Name Value Normal Range LA ESV SP 4CH (A/L) 28 ml - LA ESV SP 2CH (A/L) 29 ml - LA ESV BP (A/L) index 31 ml/m2 - Name Value Normal Range MV E-wave Vmax 0.9 m/sec - MV deceleration time 180 msec - MV A-wave Vmax 0.8 m/sec - MV E:A ratio 1.2 ratio - LV septal e' Vmax 0.11 m/sec - LV lateral e' Vmax 0.9 m/sec - LV E:e' septal ratio 8.18 ratio - LV E:e' lateral ratio 10 ratio - Name Value Normal Range AV Vmax 1.5 m/sec - AV VTI 34.3 cm - AV peak gradient 9 mmHg - AV mean gradient 5 mmHg - LVOT Vmax 1.1 m/sec - LVOT VTI 18.9 cm - LVOT peak gradient 5 mmHg - LVOT mean gradient 2 mmHg - Name Value Normal Range IVC diameter 1.6 cm - Name Value Normal Range PV Vmax 0.7 m/sec - PV peak gradient 2 mmHg -
[2018-08-12 10:44] LABS: BUN/Creatinine Ratio 14.1 (8-20); Calcium 8.8 mg/dL (8.6-10.3); EGFR African American 63.6 (>60); EGFR Non-African American 52.6 (>60); Potassium 3.7 mmol/L (3.5-5.0)
[2018-08-12 10:57] LABS: ABS Basophils 0.1 10^3/ul (0-0.2); ABS Eosinophils 0.2 10^3/ul (0-0.6); ABS Lymphocytes 0.9 10^3/ul (1.0-4.8); ABS Monocytes 0.7 10^3/ul (0-0.8); ABS Neutrophils 3.8 10^3/ul (1.5-7.7); ABS Nucleated RBC 0 10^3/ul; Eosinophil % 2.7 %; Hematocrit 33 % (42-52); Hemoglobin 10.5 g/dl (14.0-18.0); Lymphocyte % 16.3 %; Mean Corpuscular HGB Conc 32 g/dl (31-36); Mean Corpuscular Hemoglobin 28 pg (27-31); Mean Corpuscular Volume 87 fL (80-94); Mean Platelet Volume 8.2 fL (7.4-10.4); Nucleated Red Blood Cells % 0; Platelet Count 217 10^3/ul (150-450); Red Blood Count 3.76 10^6/ul (4.00-5.40); Red Cell Distribution Width 15 % (10.5-15); White Blood Count 5.7 10^3/ul (3.5-10.8)
[2018-08-12 11:37] VITALS: BP 107/52
--- NOTE | 2018-08-12 20:51 | DS ---
CC: Dr. Ramiro Acevedo; Dr. Macho Teague; Dr. Gloria Arvizu; Dr. Delgado, Cardiology; Dr. Felder, Cardiology * DISCHARGE SUMMARY: DATE OF ADMISSION: 08/10/18 DATE OF DISCHARGE: 08/12/18 DISCHARGE DIAGNOSES: 1. Syncope. Likely due to moderate dehydration in the setting of chronic unchanged obstructive hydrocephalus. 2. Acute renal insufficiency, improved; unclear baseline; RASHEEDA inhibitor being held. 3. Frequent premature atrial contractions. Per Cardiology, no further workup. 4. Anemia of chronic disease on top of mild iron deficiency anemia. DISCHARGE MEDICATIONS: As follows: 1. Atorvastatin 40 mg p.o. daily. 2. Tamsulosin 0.4 mg p.o. daily. 3. Fenofibrate 160 mg p.o. daily. 4. Linagliptin 5 mg p.o. daily. 5. Metformin 500 mg p.o. b.i.d. 6. Multivitamins 1 tab p.o. daily. 7. Vitamin C 500 mg and vitamin D tablets 1 tab p.o. daily. 8. Ferrous sulfate 325 p.o. daily. HISTORY OF PRESENT ILLNESS/HOSPITAL COURSE: The patient is a 68-year-old gentleman with history of hypertension, diabetes, and COPD, who reported that he was at [facility] on 08/10/18 and had an acute onset of lightheadedness, dizziness, and subsequent syncopal episode, where he mentions he was told that he lost consciousness by his who witnessed the event for a few seconds to a minute and he was reported to have woken up slightly confused that only lasted for only a few seconds and immediately returned to his baseline. He also noted a similar episode 3 weeks prior to admission, where he "passed out in his granddaughter's swim meet" where he noted the environment to be quite hot and humid. However, at that time, he declined to be evaluated in the hospital. Because of the recent recurrent syncopal episode , he was brought by EMS to the ER, where given his known hydrocephalus back in 2018, he had a CT of his head which did not reveal any acute finding. He did aggressive hydration given his likely acute renal failure, although previous baseline is unclear and the patient is currently on an RASHEEDA inhibitor which could certainly slightly increase his creatinine. His creatinine improved with hydration along with his symptoms. In addition, on presentation to the ED, he had an orthostatic vital signs and although his blood pressure did not decrease in the sitting and standing position from the supine, the patient's heart rate was noted to be elevated by 26 points from a supine position to standing position. Upon appropriate hydration, however, his postural tachycardia due to the dehydration has resolved and that cannot be diagnosed with POTS. He was also placed on telemetry while working him up for his syncope and it was found that he has frequent PACs, which could certainly cause some dizziness in some patients. However, per Cardiology, it is unlikely to lead to syncope and hence no subsequent and further workup were suggested by either Dr. Felder nor Dr. Delgado and hence we will defer. The patient also was ruled out for a pulmonary embolism given he had an elevated D-dimer on admission and was read as low probability PE by a V/Q scan. He also had carotid Dopplers as well as 2D echo as part of his syncopal workup, which were otherwise reassuring and he does not have any significant carotid artery stenosis nor does he have any diastolic or systolic dysfunction in his echocardiogram. In fact, he has normal EF of about 55% to 60% with no clinically significant diastolic dysfunction or wall motion nor valvular abnormality reported. He had been advised to follow up and/or call his PCP within 3 days post discharge. He had also been informed that I have spoken with Dr. Delgado and Dr. Felder who mentions no further workup of his frequent PAC. He was advised to hydrate himself adequately every day and to drink water and/or fluids when he is thirsty and to continually examine his oral mucosa and bony prominences for signs of dehydration as advised prior to his discharge. He had been informed that his carotid Dopplers and 2D echo results were reassuring and otherwise unremarkable. He was advised that if his symptoms resume or develop new ones or feel unwell for any reason, to call his PCP first. If his PCP cannot entertain him due to scheduling issues alone, he was advised to call [facility] if the issue is nonemergent. He was advised to call my office regarding any questions, concerns, or further clarifications regarding his discharge plans and/or prescriptions and to take his medications as prescribed. REVIEW OF SYSTEMS: The patient denied any recent headaches, dizziness, fevers, chills, nausea, vomiting, chest pain, shortness of breath, increased cough and sputum production, abdominal pain, diarrhea, constipation, pain and/or increased frequency in urination, myalgias, arthralgias, throat pain, or new skin lesions. The rest of the 14-point review of systems are, otherwise, unremarkable. PHYSICAL EXAMINATION: Reveals the most recent vital signs of record with blood pressure of 107/52, 98.3 degrees Fahrenheit, 63 beats per minute heart rate, 18 per minute respiratory rate, saturating at 98% on room air. General Appearance : The patient is awake, alert, and oriented x3, not in acute distress. HEENT: Normocephalic, atraumatic. PERRLA, extraocular muscles intact. Negative for icterus. Moist oral mucosa. Negative throat erythema. Neck is soft, supple, with no cervical lymphadenopathy. No JVD. Heart: S1 and S2 within normal limits. Regular rate and rhythm. No murmurs, rubs or gallops. Chest: Clear to auscultation bilaterally. Good air entry. No wheezes, rales, or rhonchi. Abdomen is soft, nondistended, nontender. Normoactive bowel sounds x4 quadrants. Extremities: No cyanosis, clubbing or edema. Psychiatric: No active psychosis, depression, suicidal, no homicidal ideation. Skin is warm to touch. TIME SPENT: The total time spent evaluating the patient, reviewing pertinent data, and appropriate documentation is 50 minutes. [id number]/[facility] #: [id number] [facility]
== END 2018-08-12 15:04 | disposition home or self-care (01) ==
LOC: ED 10:44 → MEDTELE 13:45
PROVIDERS: ADMIT Internal Medicine; ATTEND Student in an Organized Health Care Education/Training Program
DX: R55 Syncope and collapse (principal); N28.9 Disorder of kidney and ureter, unspecified; I49.1 Atrial premature depolarization; E13.9 Other specified diabetes mellitus without complications; D64.9 Anemia, unspecified; E78.5 Hyperlipidemia, unspecified; N39.0 Urinary tract infection, site not specified; D50.9 Iron deficiency anemia, unspecified; R10.9 Unspecified abdominal pain; R11.2 Nausea with vomiting, unspecified; R19.7 Diarrhea, unspecified; R42 Dizziness and giddiness; I10 Essential (primary) hypertension; E11.9 Type 2 diabetes mellitus without complications
CPT/HCPCS: 36415; 70450; 71046; 78579; 80048; 80053; 81003; 81015; 82550; 82607; 82728; 83540; 83550; 83605; 83735; 83880; 84443; 84484; 85014; 85025; 85379; 87040; 87077; 87086; 87186; 93005; 93306; 93880; 96365; 99284; A9558; G0378; J1644; J3475